=== PATIENT | female | born 1995 | race American Indian/Alaskan Native ===

== ENCOUNTER 2017-03-07 02:19 | Emergency (ER) | payer SELFPAY ==
[2017-03-07 02:31] VITALS: BP 153/106
[2017-03-07 03:49] LABS: Bacteria,Urine 1+ /HPF (Negative); Bilirubin,Urine NEG (Negative); Blood,Urine SM (Negative); Ketones,Urine TR mg/dL (Negative); Leukocyte Esterase,Urine LG (Negative); Mucus,Urine FEW /HPF; Nitrite,Urine NEG (Negative)
[2017-03-07 03:51] LABS: WBC,Urine > 182.0 /HPF (0.0-6.0)
--- NOTE | 2017-03-10 07:26 | ED Elopement Review ---
ED Pt Elopement review - Results review Lab results: Laboratory Tests 03/07/17 03:11 Urine Color Yellow Urine Turbidity Cloudy Urine pH 5.0 Ur Specific [place] 1.029 Urine Protein 30 mg/dl Urine Glucose (UA) Neg Urine Ketones Tr Urine Blood Sm Urine Nitrite Neg Urine Bilirubin Neg Urine Urobilinogen 2.0 Ur Leukocyte Esterase Lg Urine WBC (Auto) > 182.0 H Urine RBC (Auto) 12.0 U Epithel Cells (Auto) 21.0 H Urine Bacteria (Auto) 1+ Hyaline Casts 2 Urine Mucus Few Urine HCG, Qual Negative - Call Back decision Pt Call Back Decision: Call pt to return to ED [facility] (Has UTI needs treatment)
== END 2017-03-07 04:40 | disposition left against medical advice (07) ==
LOC: ED 02:19
DX: R10.9 Unspecified abdominal pain (principal); Z53.21 Procedure and treatment not carried out due to patient leaving prior to being seen by health care provider
CPT/HCPCS: 81001; 81025